=== PATIENT | female | born 2005 | race African-American/Black ===

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

== ENCOUNTER 2024-08-03 17:56 | Emergency (ER) | payer MEDICAID ==
[~2024-08-03] VITALS: Ht 165.1 cm; Wt 78.0 kg
[2024-08-03 17:58] VITALS: O2SAT 99
[2024-08-03] MEDS: ONDANSETRON 4MG ODT PO STA (20:32)
[2024-08-03] MEDS: IBUPROFEN 600MG TABLET PO STA (20:32)
[2024-08-03 20:38] LABS: BASOPHILS % 0.3 % (0.0-2.0); DIFFERENTIAL COMMENT 0; EOSINOPHILS % 0.1 % (0.0-5.0); HEMATOCRIT. 31.4 % (36.0-48.0); HEMOGLOBIN. 9.7 g/dL (12.0-16.0); LYMPHOCYTES % 8.1 % (20.0-50.0); MEAN CORPUSCULAR HEMOGLOBIN 24.2 pg (28.0-32.0); MONOCYTES % 7.5 % (2.0-8.0); PLATELET 475 x1000/uL (130-400); RED BLOOD CELL COUNT 4.03 mill/uL (4.2-5.4); RED CELL DISTRIBUTION WIDTH 18.7 % (11.6-14.6); WHITE BLOOD COUNT 9.6 x1000/uL (4.5-11.0)
[2024-08-03 20:44] LABS: CHLORIDE 106 mEq/L (98-107); POTASSIUM 3.8 mEq/L (3.5-5.1); SODIUM 137 mEq/L (136-145)
[2024-08-03 20:45] LABS: CARBON DIOXIDE 26 mEq/L (21-32)
[2024-08-03 20:46] LABS: CALCIUM 9.6 mg/dL (8.7-10.4)
[2024-08-03 20:48] LABS: PROTHROMBIN TIME 11.4 sec (9.6-11.0)
[2024-08-03 20:50] LABS: GLUCOSE 95 mg/dL (70-105); UREA NITROGEN BLOOD 8 mg/dL (9-23)
[2024-08-03 20:51] LABS: HCG SCREEN NEGATIVE
[2024-08-03 21:16] LABS: CLARITY URINE CLOUDY (CLEAR); COLOR URINE YELLOW (YELLOW); GLUCOSE URINE NEGATIVE (NEGATIVE); KETONES URINE NEGATIVE (NEGATIVE); LEUKOCYTE ESTERASE URINE 3+ (NEGATIVE); NITRITE URINE POSITIVE (NEGATIVE); OCCULT BLOOD URINE 1+ (NEGATIVE); PROTEIN URINE 1+ (NEGATIVE); SPECIFIC GRAVITY URINE 1.012 (1.005-1.030)
[2024-08-03] MEDS ORDERED: FERR-71 MT (21:35)
[2024-08-03] MEDS ORDERED: CEPH500C2 MT (21:35)
[2024-08-03] MEDS: CEFTRIAXONE SODIUM 1G VIAL IM ONE (22:15)
[2024-08-03 22:16] VITALS: BP 110/68; PULSE 74; RESP 19; TEMP 36.55848; O2SAT 100
[2024-08-03 22:23] LABS: BACTERIA URINE 3+; SQUAMOUS EPITHELIAL CELL URINE 1+ /lpf (RARE/1+)
[2024-08-03 22:24] LABS: WBC URINE TNTC /hpf (0-2)
== END 2024-08-03 22:22 | disposition home or self-care (01) ==
LOC: ER 17:56
DX: N39.0 Urinary tract infection, site not specified (principal); Z87.440 Personal history of urinary (tract) infections; Z79.899 Other long term (current) drug therapy
CPT/HCPCS: 99283; 80048; 81003; 84703; 83690; 85025; 85610; 87086; 87077; 36415; 96372; Q0162; J0696

== ENCOUNTER 2024-09-22 08:26 | Emergency (ER) | payer MEDICAID ==
[~2024-09-22] VITALS: Ht 165.1 cm; Wt 78.0 kg
[~2024-09-22 08:26] MED LIST changes: +CEPH500C2 MT; +FERR-71 MT
[2024-09-22 08:29] VITALS: O2SAT 100
[2024-09-22] MEDS ORDERED: IBUP-2029 MT (09:12)
[2024-09-22] MEDS: IBUPROFEN 600MG TABLET PO ONE (09:54)
[2024-09-22 09:55] VITALS: BP 118/68; PULSE 88; RESP 18; TEMP 36.94740; O2SAT 100
== END 2024-09-22 10:00 | disposition home or self-care (01) ==
LOC: ER 08:26
DX: S63.502A Unspecified sprain of left wrist, initial encounter (principal); D64.9 Anemia, unspecified; F19.90 Other psychoactive substance use, unspecified, uncomplicated; X58.XXXA Exposure to other specified factors, initial encounter; Y93.89 Activity, other specified; Y92.89 Other specified places as the place of occurrence of the external cause; Y99.8 Other external cause status
CPT/HCPCS: 29125; 81025; 99282; 99283

== ENCOUNTER 2025-03-10 05:28 | Emergency (ER) | payer MEDICAID ==
[~2025-03-10] VITALS: Ht 165.1 cm; Wt 72.0 kg
[~2025-03-10 05:28] MED LIST changes: +IBUP-2029 MT
[2025-03-10 05:36] VITALS: O2SAT 98
[2025-03-10 05:38] VITALS: BP 126/93; PULSE 88; RESP 18; TEMP 36.7; O2SAT 98
[2025-03-10] MEDS ORDERED: TOPUD PO (08:10)
== END 2025-03-10 08:47 | disposition home or self-care (01) ==
LOC: ER 05:28
DX: J02.8 Acute pharyngitis due to other specified organisms (principal); B97.89 Other viral agents as the cause of diseases classified elsewhere; D64.9 Anemia, unspecified; F19.90 Other psychoactive substance use, unspecified, uncomplicated; Z88.0 Allergy status to penicillin; Z88.1 Allergy status to other antibiotic agents; Z79.899 Other long term (current) drug therapy
CPT/HCPCS: 71045; 87070; 87430; 99284

== ENCOUNTER 2025-05-14 02:53 | Emergency (ER) | payer MEDICAID ==
[~2025-05-14] VITALS: Ht 165.1 cm; Wt 74.8 kg
[~2025-05-14 02:53] MED LIST changes: +TOPUD PO
[2025-05-14 03:00] VITALS: TEMP 36.9; O2SAT 100
[2025-05-14] MEDS: DIPHENHYDRAMINE 50MG/ML VIAL IV ONE (05:27)
[2025-05-14] MEDS: METOCLOPRAMIDE HCL 10MG/2ML VIAL IV ONE (05:27)
[2025-05-14 05:31] VITALS: BP 113/68; PULSE 63; RESP 14
[2025-05-14] MEDS: KETOROLAC 15MG/ML VIAL IV ONE (05:31)
[2025-05-14] MEDS: SODIUM CHLORIDE 0.9% 1,000 ML IV ONE (05:32)
[2025-05-14] MEDS ORDERED: IBUP-2029 MT (06:03)
== END 2025-05-14 06:48 | disposition home or self-care (01) ==
LOC: ER 02:53
DX: R51.9 Headache, unspecified (principal); Z79.899 Other long term (current) drug therapy; Z98.890 Other specified postprocedural states
CPT/HCPCS: 81025; 96361; 96374; 96375; 99284; J1200; J1885; J2765; J7030; Z7610 ×4